=== PATIENT | male | born 1960 | race Caucasian/White ===

== ENCOUNTER 2019-08-16 08:01 | Inpatient (IN) | payer OTHER ==
[~2019-08-16] VITALS: Ht 162.6 cm; Wt 81.2 kg
[2019-08-16] VITALS (8 sets, daily range): BP systolic 101–132; BP diastolic 63–95
--- NOTE | 2019-08-16 08:30 | NUR ---
MS RN NOTES PATIENT ARRIVED TO UNIT, 0830. PATIENT ALERT AND ORIENTED X 4. PATIENT SHOWS NO SIGNS OF RESPIRATORY DISTRESS, ON ROOM AIR. PATIENT SKIN CLEAN, DRY AND INTACT, STARTED AN IV ACCESS LINE ON RIGHT AC, 18 GAUGE PATENT AND INTACT. PROVIDED COMFORT MEASURES AND INITIATED SAFETY PRECAUTION WITH BED IN THE LOWEST POSITION, BED LOCKED, BILATERAL SIDE RAILS UP, AND ALL LIGHT WITHIN REACH. PATIENT WILL VIA HOSPITAL BED TO OR. WILL CONTINUE TO MONITOR PATIENT.
[2019-08-16] MEDS ORDERED: MIDAZOLAM HCL 2 MG/2ML VIAL ONE (09:25)
[2019-08-16] MEDS ORDERED: FENTANYL PF 250MCG/5ML AMPUL ONE (09:25)
[2019-08-16] MEDS ORDERED: FAMOTIDINE/PF INJ 20 MG/2 ML VIAL IV ONE (09:26)
[2019-08-16] MEDS ORDERED: BUPIVACAINE 0.25% 75 MG/30 ML VIAL ONE (09:26)
[2019-08-16] MEDS ORDERED: BACITRACIN 50000 UNITS/VIAL ONE (09:27)
--- NOTE | 2019-08-16 09:38 | NUR ---
MS LACEY NOTES PATIENT PICKED-UP BY RANDELL, VIA [facility] Addendum: 08/16/19 at 0940 by LORENZO COLE RN MS LACEY NOTES PATIENT PICKED-UP BY RANDELL OR [facility]NAZ, [id number], [facility]IA [facility].
[2019-08-16] MEDS ORDERED: TRANEXAMIC ACID 3,000 MG in SODIUM CHLORIDE IRRIG SOLUTION 70 ML IR ONE (10:30)
[2019-08-16] MEDS ORDERED: DOCUSATE SODIUM 250 MG CAPSULE PO PRN (14:00)
[2019-08-16] MEDS ORDERED: ONDANSETRON HCL/PF 4 MG/2 ML VIAL IVP PRN ×2 (14:00)
[2019-08-16] MEDS ORDERED: ACETAMINOPHEN 325 MG TABLET PO PRN (14:00)
[2019-08-16] MEDS ORDERED: HYDROMORPHONE INJ 2 MG/ML DISP.SYRIN SQ PRN (14:00)
[2019-08-16] MEDS ORDERED: diphenhydrAMINE HCL 25 MG CAPSULE PO PRN (14:00)
[2019-08-16] MEDS ORDERED: ZOLPIDEM TARTRATE 5 MG TABLET PO PRN (14:00)
[2019-08-16] MEDS ORDERED: MAG HYDROX/AL HYDROX/SIMETH 30 ML UDC PO PRN (14:00)
[2019-08-16] MEDS ORDERED: SENNOSIDES 8.6 MG TABLET PO PRN (14:00)
[2019-08-16] MEDS ORDERED: HYDROCODONE/APAP 5/325MG 1 EACH TABLET PO PRN (14:00)
[2019-08-16] MEDS ORDERED: BISACODYL SUPP (10 MG) 10 MG/SUPP.RECT SUPP.RECT RC PRN ×2 (14:00)
[2019-08-16] MEDS: HYDROMORPHONE 1 MG/1 ML DISP.SYRIN IV PRN ×2 (14:53→21:23)
[2019-08-16] MEDS: oxyCODONE IR immediate release 5 MG PO PRN (16:57)
[2019-08-16] MEDS: IV D5/0.45 NACL 1,000 ML IV PRN (17:56)
[2019-08-16] MEDS: DRONABINOL (2.5 MG) 2.5 MG CAPSULE PO SCH (17:57)
[2019-08-16] MEDS: ANCEF 1 GM/50 ML D5W IV SCH ×2 (17:57)
--- NOTE | 2019-08-16 18:50 | NUR ---
MS RN NOTES PATIENT IN BED, RESTING COMFORTABLY. ALERT AND ORIENTED X 4. PATIENT PRESENTS NO ACUTE RESPIRATORY DISTRESS, NON-LABORED BREATHING, AND ON ROOM AIR. PATIENT SKIN CLEAN, DRY, AND INTACT IV ACCESS ON RIGHT AC 18 GAUGE, PATENT AND INTACT. PATIENT CONN IN PLACE WITH CLEAR YELLOW URINE. INITIATED SAFETY PRECAUTIONS, WITH BED ALARM ON, BED LOCKED, BED IN THE LOWEST POSITION, SEMI-FOWLERS WITH BILATERAL SIDE RAILS UP, AND CALL LIGHT WITH IN EASY REACH. WILL ENDORSE JULIO TO THE NIGHTSHIFT NURSE.
--- NOTE | 2019-08-16 19:43 | NUR ---
MS RN NOTES PATIENT IN BED, ASLEEP EASILY AROUSED, ALERT AND ORIENTED X 4. BREATHING EVEN AND UNLABORED ON ROOM AIR. SHOWS NO SIGNS OF ACUTE RESPIRATORY DISTRESS. NO ACUTE PAIN. IV ON RIGHT AC 18G RUNNING D5 1/2 NS AT 125ML/HR. CLEAN DRY AND INTACT. SHOWS NO INFILTRATION, NO REDNESS. SAFETY PRECAUTIONS IN PLACE. BED IN LOWEST POSITION, LOCKED, AND CALL LIGHT KEPT WITHIN REACH. WILL CONTINUE TO MONITOR.
--- NOTE | 2019-08-16 21:23 | NUR ---
MS RN NOTES PATIENT COMPLAINING OF PAIN AT SURGICAL SITE. PAIN 02/20. GIVEN DILAUDID PRN AT 2122. WILL CONTINUE TO MONITOR.
[2019-08-16] MEDS: FAMOTIDINE (20 MG) 20 MG TABLET PO SCH (21:24)
[2019-08-17] MEDS: oxyCODONE IR immediate release 5 MG PO PRN ×4 (02:08→21:22)
--- NOTE | 2019-08-17 02:08 | NUR ---
MS RN NOTES PATIENT COMPLAINING OF PAIN. REQUESTED OXY. GIVEN OXY PRN AT 0208. WILL CONTINUE TO MONITOR.
[2019-08-17] MEDS: ANCEF 1 GM/50 ML D5W IV SCH ×2 (02:31)
[2019-08-17] MEDS: HYDROMORPHONE 1 MG/1 ML DISP.SYRIN IV PRN ×6 (02:39→23:33)
--- NOTE | 2019-08-17 02:39 | NUR ---
MS RN NOTES PATIENT COMPLAINING OF PAIN AT SURGICAL SITE, STATES OXY DID NOT HELP. PAIN 10/. GIVEN DILAUDID PRN 0239 WILL CONTINUE TO MONITOR.
[2019-08-17] MEDS: IV D5/0.45 NACL 1,000 ML IV PRN (04:08)
--- NOTE | 2019-08-17 05:42 | NUR ---
MS RN NOTES PATIENT COMPLAINING OF PAIN AT SURGICAL SITE. PAIN 8/10. GIVEN DILAUDID PRN AT 0542. WILL CONTINUE TO MONITOR.
[2019-08-17] MEDS: DRONABINOL (2.5 MG) 2.5 MG CAPSULE PO SCH ×2 (06:00→17:04)
--- NOTE | 2019-08-17 06:41 | NUR ---
MS RN NOTES PATIENT COMPLAINING OF PAIN. USING CMP MACHINE. GIVEN PRN OXY AT 0641. WILL CONTINUE TO MONITOR.
--- NOTE | 2019-08-17 07:19 | NUR ---
MS RN NOTES PATIENT IN BED, ASLEEP EASILY AROUSED, ALERT AND ORIENTED X 4. BREATHING EVEN AND UNLABORED ON ROOM AIR. SHOWS NO SIGNS OF ACUTE RESPIRATORY DISTRESS. NO ACUTE PAIN. IV ON RIGHT AC 18G RUNNING D5 1/2 NS AT 125ML/HR. CLEAN DRY AND INTACT. SHOWS NO INFILTRATION, NO REDNESS. ALL DUE MEDICATIONS GIVEN. SAFETY PRECAUTIONS IN PLACE. BED IN LOWEST POSITION, LOCKED, AND CALL LIGHT KEPT WITHIN REACH. WILL ENDORSE TO ONCOMING NURSE.
--- NOTE | 2019-08-17 07:27 | NUR ---
MS RN OPENING NOTE RECEIVED PATIENT SLEEPING IN BED RESTING COMFORTABLY. PATIENT IN NO ACUTE DISTRESS. NO SOB NOTED. PATIENT BREATHING IS EVEN AND UNLABORED. PATIENT IN NO PAIN AT THIS TIME. BED ALARM IS ON. SAFETY PRECAUTIONS IN PLACE. PATIENT BED IS LOCKED AND IN LOWEST POSITION. CALL LIGHT WITHIN REACH. WILL CONTINUE TO MONITOR. Addendum: 08/17/19 at 0733 by ROSA STERLING RN MS RN OPENING NOTE RECEIVED PATIENT IN BED RESTING COMFORTABLY. PATIENT IN NO ACUTE DISTRESS. NO SOB NOTED. PATIENT BREATHING IS EVEN AND UNLABORED. PATIENT IN NO PAIN AT THIS TIME. BED ALARM IS ON. SAFETY PRECAUTIONS IN PLACE. PATIENT BED IS LOCKED AND IN LOWEST POSITION. CALL LIGHT WITHIN REACH. WILL CONTINUE TO MONITOR.
[2019-08-17 07:36] LABS: HEMOGLOBIN 13.7 g/dL (13.5-17.5)
[2019-08-17 08:00] VITALS: BP 133/86
[2019-08-17 08:41] LABS: CALCIUM, SERUM 7.7 mg/dL (8.5-10.1); CREATININE 0.8 mg/dL (0.6-1.3); MAGNESIUM 1.9 mg/dL (1.8-2.4); PHOSPHORUS 3.1 mg/dL (2.5-4.9); POTASSIUM 4.2 mmol/L (3.5-5.1)
[2019-08-17] MEDS ORDERED: TAMSULOSIN 0.4 MG CAP.SR.24H PO ONE (09:00)
[2019-08-17] MEDS: ASPIRIN 325 MG TABLET PO SCH ×2 (09:15→21:15)
[2019-08-17] MEDS: FAMOTIDINE (20 MG) 20 MG TABLET PO SCH ×2 (09:15→21:15)
[2019-08-17 11:04] LABS: BASOPHILS % (AUTO) 0.4 % (0.0-2.0); EOSINOPHILS % (AUTO) 0.9 % (0.0-6.0); HEMATOCRIT 40 % (39-51); HEMOGLOBIN 13.2 g/dL (13.5-17.5); LYMPHOCYTES # (AUTO) 0.9 /CMM (0.8-4.8); LYMPHOCYTES % (AUTO) 9.1 % (20.0-44.0); MEAN CORPUSCULAR HGB CONC 33 g/dl (31.0-36.0); MEAN CORPUSCULAR VOLUME 88 fL (80-96); MONOCYTES # (AUTO) 1.3 /CMM (0.1-1.30); NEUTROPHILS % (AUTO) 76.6 % (43.0-81.0); PLATELET COUNT (AUTO) 200 /CMM (150-450); RED BLOOD CELL COUNT(AUTO) 4.49 MIL/uL (4.5-6.0); WHITE BLOOD COUNT (AUTO) 10.4 K/uL (4.3-11.0)
[2019-08-17 16:00] VITALS: BP 141/73
--- NOTE | 2019-08-17 18:11 | NUR ---
MS RN CLOSING NOTE PATIENT IN BED RESTING COMFORTABLY. PATIENT IN NO PAIN THIS TIME. PATIENT BREATHING IS EVEN AND UNLABORED. NO SOB NOTED. PATIENT IN NO ACUTE DISTRESS. PATIENT NEEDS AND CONCERNS ADDRESSED. PATIENT SURGICAL DRESSING DRY AND INTACT. PATIENT KEPT CLEAN, DRY, AND COMFORTABLE THROUGHOUT SHIFT. PATIENT BED IS LOCKED AND IN LOWEST POSITION. CALL LIGHT WITHIN REACH. WILL ENDORSE CARE TO PM SHIFT FOR JULIO. Addendum: 08/17/19 at 1928 by ROSA STERLING RN MS RN CLOSING NOTE PATIENT IN BED RESTING COMFORTABLY. PATIENT IN NO PAIN AT THIS TIME. PATIENT BREATHING IS EVEN AND UNLABORED. NO SOB NOTED. PATIENT IN NO ACUTE DISTRESS. PATIENT NEEDS AND CONCERNS ADDRESSED. PATIENT SURGICAL DRESSING DRY AND INTACT. PATIENT KEPT CLEAN, DRY, AND COMFORTABLE THROUGHOUT SHIFT. PATIENT BED IS LOCKED AND IN LOWEST POSITION. CALL LIGHT WITHIN REACH. WILL ENDORSE CARE TO PM SHIFT FOR JULIO.
[2019-08-17 19:30] VITALS: BP 136/87
--- NOTE | 2019-08-17 19:30 | NUR ---
MS RN NOTES PATIENT IN BED, AWAKE, ALERT AND ORIENTED X 4. BREATHING EVEN AND UNLABORED ON ROOM AIR. SHOWS NO SIGNS OF ACUTE RESPIRATORY DISTRESS. NO ACUTE PAIN. IV ON RIGHT AC 18G RUNNING D5 1/2 NS AT 125ML/HR. CLEAN DRY AND INTACT. SHOWS NO INFILTRATION, NO REDNESS. SAFETY PRECAUTIONS IN PLACE. BED IN LOWEST POSITION, LOCKED, AND CALL LIGHT KEPT WITHIN REACH. WILL CONTINUE TO MONITOR.
--- NOTE | 2019-08-17 19:37 | NUR ---
MS RN NOTES PATIENT COMPLAINING OF PAIN 10/. GIVEN DILAUDID PRN AT 1937. WILL CONTINUE TO MONITOR.
[2019-08-17 20:37] VITALS: BP 136/87
--- NOTE | 2019-08-17 21:22 | NUR ---
MS RN NOTES PATIENT COMPLAINING OF PAIN. DILAUDID ONLY RELIEVES HIS PAIN FOR APPROX. AN HOUR. GIVEN OXY IR PRN AT 2121. WILL CONTINUE TO MONITOR.
--- NOTE | 2019-08-17 23:33 | NUR ---
MS RN NOTES PATIENT COMPLAINED OF PAIN 03/23, STATING MORE PAIN TODAY COMPARED TO YESTERDAY. GIVEN DILAUDID 2333. WILL CONTINUE TO MONITOR.
[2019-08-18] MEDS: DRONABINOL (2.5 MG) 2.5 MG CAPSULE PO SCH (05:59)
[2019-08-18] MEDS: HYDROMORPHONE 1 MG/1 ML DISP.SYRIN IV PRN ×2 (06:27→15:12)
--- NOTE | 2019-08-18 06:30 | NUR ---
MS RN NOTES PATIENT COMPLAINING OF PAIN. GIVEN DILAUDID PRN AT 0630. WILL CONTINUE TO MONITOR.
--- NOTE | 2019-08-18 06:43 | NUR ---
MS RN NOTES PATIENT IN BED, ASLEEP, ALERT AND ORIENTED X 4. BREATHING EVEN AND UNLABORED ON ROOM AIR. SHOWS NO SIGNS OF ACUTE RESPIRATORY DISTRESS. NO ACUTE PAIN. IV ON RIGHT AC 18G RUNNING D5 1/2 NS AT 125ML/HR. CLEAN DRY AND INTACT. SHOWS NO INFILTRATION, NO REDNESS. ALL DUE MEDICATIONS GIVEN. SAFETY PRECAUTIONS IN PLACE. BED IN LOWEST POSITION, LOCKED, AND CALL LIGHT KEPT WITHIN REACH. WILL ENDORSE TO ONCOMING NURSE.
[2019-08-18] MEDS: ASPIRIN 325 MG TABLET PO SCH (08:29)
[2019-08-18] MEDS: FAMOTIDINE (20 MG) 20 MG TABLET PO SCH (08:29)
[2019-08-18] MEDS: oxyCODONE IR immediate release 5 MG PO PRN (09:42)
--- NOTE | 2019-08-18 15:40 | NUR ---
Patient cleared for D/C by MD. Patient alert and oriented x4 . breathing unlabored and even on room air . VS are stable and within baseline. Patient seen by [facility] prior discharge. Dressing changed and patient instructed. Patient already has an appointment with dr.Sisto schultz will f/u with him in one week. D/C instructions provided and pt verbalized understanding . D/C papers and valuable form sighed and all belongings with the patient. IV line removed and ID wrist band removed. Patient medicated before discharge. Patient safely transferred to the [facility] accompanied by nurse and daughter.
== END 2019-08-18 15:35 | disposition home or self-care (01) | DRG 467 ==
LOC: DS 08:01 → MED 08:03
PROVIDERS: ADMIT Internal Medicine; ATTEND Internal Medicine
PROC: 0SRC0J9 Replacement of Right Knee Joint with Synthetic Substitute, Cemented, Open Approach (ICD-10-PCS; principal; 2019-08-16)
PROC: 0SPC0JZ Removal of Synthetic Substitute from Right Knee Joint, Open Approach (ICD-10-PCS; principal; 2019-08-16)
DX: M17.11 Unilateral primary osteoarthritis, right knee (principal); E87.1 Hypo-osmolality and hyponatremia; F29 Unspecified psychosis not due to a substance or known physiological condition; E86.1 Hypovolemia; E66.9 Obesity, unspecified; Z83.3 Family history of diabetes mellitus; Z82.49 Family history of ischemic heart disease and other diseases of the circulatory system; Z82.0 Family history of epilepsy and other diseases of the nervous system; F12.90 Cannabis use, unspecified, uncomplicated
CPT/HCPCS: 36415; 80048-TC; 83735-TC; 84100-TC; 85025-TC; 85027-TC; 87081-TC; 88305-TC; 88311-TC; 97110-TC; 97116-TC; 97530-TC; 97760-TC; G0378; J0690; J1170; J2250; J3010; J3490; J7060; Q0167